=== PATIENT | female | born 1965 | race Two or more races ===

== ENCOUNTER → 2024-09-20 10:00 | Outpatient (REF) | payer SELFPAY | LOC: RAD 10:00 | PROVIDERS: ATTENDING PHYSICIAN Internal Medicine; FAMILY PHYSICIAN Family Medicine | DX: E78.01 Familial hypercholesterolemia (principal); E78.00 Pure hypercholesterolemia, unspecified | CPT/HCPCS: 75571 ==

== ENCOUNTER 2024-11-18 16:41 | Emergency (ER) | payer BC, SELFPAY ==
--- NOTE | 2024-11-18 17:02 | ED.GENMED ---
ED Provider Triage
-
Patient seen by provider in Triage?: Seen in Triage
59 yo female presents w/ L flank pain beginning yesterday. Waxes and wanes. No urinary voiding symptoms. No fevers or chills.
Looks uncomfortable Afebrile. requesting no CT scan at this time. Educated that US is not always adequate to measure size. Will obtain US, give toradol, check UA
History of Present Illness
General
Chief Complaint: Flank Pain
Past History
Past History
ED Past Medical History: None
ED Past Surgical History: None
Social History
Tobacco: Non-smoker
Course
Orders/Labs/Results
Orders:
Orders
11/18/24 16:59
CT Abd/pel Without Iv Or Oral Urgent
Comment:
Reason For Exam: L flank pain
Ketorolac [Toradol] 30 mg IM NOW STA
11/18/24 17:00
Urinalysis Reflex To Culture Urgent
US Kidneys and US Bladder [US Renal With Bladder] Urgent
Comment:
Reason For Exam: L flank pain
Vital Signs
Initial and Last Documented VS:
Initial Vital Signs
Temp Pulse Resp Pulse Ox
99.8 F 124 18 99
11/18/24 16:58 11/18/24 16:58 11/18/24 16:58 11/18/24 16:58
Last Documented Vital Signs
Temp Pulse Resp Pulse Ox
99.8 F 124 18 99
11/18/24 16:58 11/18/24 16:58 11/18/24 16:58 11/18/24 16:58
ED Attending Note
-
Portions of this chart may have been created with voice recognition software.� Occasional wrong word or��sound alike� substitutions may have occurred due to the inherent limitations of voice recognition software.
Discharge Plan
Departure
Prescriptions:
No Action
multivitamin [Jsj-Jcpwrd-Fflrh] 1 EACH tablet
1 ea PO DAILY
digestive enzymes 1 TAB tablet
1 tab PO .WITH EACH MEAL
Interventions
Interventions:
*General Assessment Last Done: 11/18/24 16:58
Discharge Date and Time
Print Language: TURKISH
[2024-11-18] MEDS: TORADOL 30 MG IM (17:05)
--- NOTE | 2024-11-18 20:42 | ED.GENMED ---
History of Present Illness
General
Chief Complaint: Flank Pain
Source: patient
Exam Limitations: none
Time Seen by Provider: 11/18/24 20:04
Nursing documentation reviewed up to this point in time: agreed with
History of Present Illness
History of Present Illness:
Patient is a pleasant 59-year-old female with a past medical history of kidney stones who reports 1 to 2 days of left flank pain. Patient denies nausea, vomiting, and abdominal pain. Patient reports she was evaluated urgent care and found to have
blood in her urine and sent to the ED. Patient denies burning when she urinates, frequency and hesitancy. Patient reports the left flank pain is worse when she rubs her left lower back. She also has noticed a low-grade fever that started today.
On arrival, patient declined a CAT scan and is requesting an ultrasound.
Past History
Past History
ED Past Medical History: Hypercholesterolemia and Other (Diverticulosis, kidney stones)
ED Past Surgical History: Other
Social History
Tobacco: Non-smoker
Alcohol: Other
Drug: None
Personal:
Living: with family
Employment: Other
Family History
Family History: Other
Review of Systems
Review of Systems
Allergies reviewed?: Yes
All Other Systems: ROS reviewed and negative except as documented in HPI and ROS
Constitutional: Reports fever and chills
EENT: Reports no symptoms
Respiratory: Reports no symptoms
Cardiac: Reports no symptoms
ABD/GI: Reports no symptoms
: Reports flank pain
Musculoskeletal: Reports no symptoms
Skin: Reports no symptoms
Neurological: Reports no symptoms
Endocrine: Reports no symptoms
Hematologic/Lymphatic: Reports no symptoms
Psychiatric: Reports no symptoms
Phy Exam
Physical Exam
Physical Exam:
Physical Exam
General: no apparent distress, not acutely ill. Patient appears nontoxic and well
Neck: supple. no meningeal signs. normal psoterior pharynx
Heart: s1/s2 regular rate and rhythm, no murmur. equal radial pulses.
Lungs: no acute respiratory distress. clear bilaterally
Abdomen: Left flank tenderness. Abdomen is soft and nontender throughout
Neuro: alert and oriented. no focal neurological deficits
Skin: no rash
Psychiatric: well kept. interactive and cooperative
Extremities: no edema. no calf tenderness. negative homans. good distal pulses
Course
Orders/Labs/Results
Orders:
Orders
11/18/24 16:59
Ketorolac [Toradol] 30 mg IM NOW STA
11/18/24 17:00
US Kidneys and US Bladder [US Renal With Bladder] Urgent
Comment:
Reason For Exam: L flank pain
11/18/24 21:35
Urinalysis Reflex To Culture Urgent
Date Specimen was Collected: 11/18/24
Time Specimen was Collected: 21:25
Urine Microscopic Reflex Cult Urgent
Urine Culture Urgent
GALLO Source: U
Specimen Description:
Date Specimen was Collected: 11/18/24
Time Specimen was Collected: 21:25
11/18/24 21:52
LevoFLOXacin [Levaquin] 750 mg PO NOW STA
Abnormal Lab Results
11/18/24
21:35
Urine Ketones Trace A
(Negative)
Ur Occult Blood Reflex 1+ A
(Negative)
Urine Bilirubin 1+ A
(Negative)
Leukocyte Esterase Rfl 2+ A
(Negative)
Urine WBC (Reflex) 80-90 A /HPF
(0-5)
Urine Bacteria (Reflex) Many A
(Negative)
Vital Signs
Initial and Last Documented VS:
Initial Vital Signs
Temp Pulse Resp Pulse Ox
99.8 F 124 18 99
11/18/24 16:58 11/18/24 16:58 11/18/24 16:58 11/18/24 16:58
Last Documented Vital Signs
Temp Pulse Resp BP Pulse Ox
97.8 F 97 18 136/84 98
11/18/24 21:37 11/18/24 21:37 11/18/24 21:37 11/18/24 21:37 11/18/24 21:37
MDM/Problems Addressed
Differential Diagnosis Includes:
Acute pyelonephritis, renal colic, infected kidney stone, acute diverticulitis
MDM/Problems Addressed:
Patient presents with acute fever and left flank pain
Chronic conditions affecting care:
History of kidney stones
*Radiology
Radiology exam reviewed: radiology read reviewed
*Pulse Oximetry
Patient hypoxic: no
*EKG
Interpreted by ED Provider?: NA
*Tellers Supervisor Interpretation
Rate: Tellers Supervisor- N/A
*Critical Care Note
Total Time (30-74mins, 75-104mins- exclusive of procedures): Not Applicable
Data Reviewed
Source: patient and spouse
Further Testing Considered But Not Given:
I told patient that if we do a CT, it may show a kidney stone on the left side that does not show up on ultrasound. Patient reports that she recently had a CAT scan and does not want another one. She is willing to try an outpatient antibiotic and
knows to return with any fever for more than the next 24 hours or any vomiting
Patient Management
Social determinants of health affecting care: Living situation and Strong social support
Escalation/DeEscalation of care consider admission/obs:
Patient appears well and comfortable. Due to her prolonged wait, she does not want us to proceed with blood work or CT. Her ultrasound shows no sign of stone or hydro on the left. I explained to the patient that if we did a CAT scan, it may show
a possible acute diverticulitis or even a stone on the left side which can complicate or kidney infection. Patient would rather go home and take the oral antibiotic and return with any prolonged fever or vomiting.
ED Attending Note
-
Portions of this chart may have been created with voice recognition software.� Occasional wrong word or��sound alike� substitutions may have occurred due to the inherent limitations of voice recognition software.
Discharge Plan
Departure
Patient Disposition: Home (Routine Discharge)
Date of Disposition: 11/18/24
Time of Disposition: 21:54
Patient with high blood pressure during this ER visit?: Yes
Condition: Good
Covid-19: Not Applicable
Discharge Problem:
Pyelonephritis
Instructions: Urinary tract infections in adults, BLOOD PRESSURE
Prescriptions:
New
levofloxacin 750 mg tablet
750 mg PO DAILY 6 Days Qty: 6 0RF
No Action
multivitamin [Vlr-Dhvmwz-Hpral] 1 EACH tablet
1 ea PO DAILY
digestive enzymes 1 TAB tablet
1 tab PO .WITH EACH MEAL
Referrals:
Bashir Monroy, DO [Family Provider] -
Activity Restrictions/Additional Instructions:
Please return if you have a fever (for more than another 24 hours) or if you develop any vomiting. Your next antibiotic dose is due tomorrow afternoon.
Interventions
Interventions:
*General Assessment Last Done: 11/18/24 16:58
*Neglect/Abuse Screening Last Done: 11/18/24 21:31
ED- Fall Risk Assessment Last Done: 11/18/24 21:33
*ED COVID-19 Vaccine History Last Done: 11/18/24 21:31
*Nursing Disposition Last Done: 11/18/24 22:09
US-Zpyljt-Dflyyqrqwi Assessment Last Done: 11/18/24 21:31
ED-Female Genitourinary Assessment Last Done: 11/18/24 21:31
Discharge Date and Time
Discharge Date/Time: 11/18/24 22:10
Print Language: DANISH
[2024-11-18 21:37] VITALS: BP 136/84
[2024-11-18 21:41] LABS: Urine Albumin Trace (Neg - Trace); Urine Bilirubin 1+ (Negative); Urine Character Clear (Clear); Urine Color Yellow; Urine Glucose Negative (Negative); Urine Ketone Trace (Negative); Urine Leukocyte 2+ (Negative); Urine Nitrite Negative (Negative); Urine Occult Blood 1+ (Negative); Urine Urobilinogen 1+ (Neg - 1+)
[2024-11-18 21:48] LABS: Urine Red Blood Cell 0-2 /HPF (0-2); Urine Squamous Cell 16-20 /LPF (Few); Urine White Cell 80-90 /HPF (0-5)
[2024-11-18 21:49] LABS: Urine Bacteria Many (Negative); Urine Mucus Moderate
[2024-11-18] MEDS: LEVAQUIN 750 MG PO (22:06)
== END 2024-11-18 22:10 | disposition home or self-care (01) ==
LOC: EMR 16:41
PROVIDERS: Physician Assistant; EMERGENCY PHYSICIAN Emergency Medicine; FAMILY PHYSICIAN Family Medicine
DX: N12 Tubulo-interstitial nephritis, not specified as acute or chronic (principal); E78.00 Pure hypercholesterolemia, unspecified; Z87.442 Personal history of urinary calculi
CPT/HCPCS: 96372; 99284; 76770; 81003; 81015; 87086